=== PATIENT | female | born 1980 | race Caucasian/White ===

== ENCOUNTER 2017-05-17 13:03 | Emergency (ER) | payer MEDICARE, MEDICAID ==
[~2017-05-17] VITALS: Wt 84.8 kg
[~2017-05-17 13:03] MED LIST: CELEXA20 MG PO; CLINDAMYCIN150 MG PO; FIORICET 325 MG1 TAB PO; FLAGYL500 MG PO; FLEXERIL10 MG PO; FLEXERIL5 MG PO; FLONASE 0.05% 121 EA NAS; K-DUR 20MEQ20 MEQ PO; LOMOTIL 0.025 M1 TAB PO; LYSTEDA650 MG PO; MOTRIN800 MG PO; NKHM; PEN-VK500 MG PO; PENICILLIN VK500 MG PO; PERCOCET 325 MG1 TA5 PO; PHENERGAN W/ DE30 ML PO; PREDNICOT10 MG PO; PREDNICOT20 MG PO; ROBITUSSIN AC 110 ML PO; ULTRAM50 MG PO; VICODIN 5/500 505 MG PO; VOLTAREN50 M1 PO; XANAX0.5 MG PO; ZITHROMAX Z PA250 MG PO; Zofran4 MG PO
[2017-05-17 14:26] LABS: HEMATOCRIT 49.1 % (37.0-47.0); MEAN CELL VOLUME 84.5 fl (81.0-99.0); MEAN CORPUSCULAR HGB 29.3 pg (27.0-31.0); MEAN CORPUSCULAR HGB CONC 34.6 g/dl (33.0-37.0); MEAN PLATELET VOLUME 11.6 fl (9.6-12.3); PLATELET COUNT AUTOMATED 111 10*3/uL (130-400); RED BLOOD COUNT 5.81 10*6/uL (4.10-5.10); RED CELL DISTRI WIDTH 12.1 % (0-14.5); WHITE BLOOD COUNT 4.1 10*3/uL (4.8-10.8)
[2017-05-17 14:41] LABS: ALBUMIN 3.5 gm/dl (3.1-4.5); ALKALINE PHOSPHATASE 65 U/L (45-117); BUN 5 mg/dl (7-24); CHLORIDE 104 mmol/L (98-107); CREATININE 0.74 mg/dL (0.55-1.02); LIPASE 212 U/L (73-393); POTASSIUM 4.2 mmol/L (3.5-5.1); SGOT/AST 96 IU/L (3-35); SGPT/ALT 90 U/L (12-78); SODIUM 139 mmol/L (136-145); TOTAL PROTEIN 8.2 gm/dL (6.4-8.2)
[2017-05-17 14:42] LABS: BETA-HCG, QUANT < 1.0 mIU/mL (1-3)
[2017-05-17 14:55] LABS: ATYPICAL LYMPHS 4 % (0-0); TOTAL CELLS COUNTED 100 #CELLS
[2017-05-17 14:56] LABS: PLATELET SUFFICIENCY LOW (NORMAL)
[2017-05-17 16:21] LABS: BILIRUBIN 1+ (NEGATIVE); BLOOD NEGATIVE (NEGATIVE); CLARITY CLOUDY (CLEAR); COLOR YELLOW (YELLOW); GLUCOSE NEGATIVE (NEGATIVE); KETONE 1+ (NEGATIVE); LEUKO ESTERASE 3+ (NEGATIVE); NITRITE NEGATIVE (NEGATIVE)
[2017-05-17 16:28] LABS: BACTERIA 3+; EPITHELIAL CELLS 31-40; RBC 0-2 rbc/hpf (0-2)
[2017-05-17] MEDS ORDERED: ZOFRAN ODT4 MG SL (17:10)
== END 2017-05-17 17:18 | disposition home or self-care (01) ==
LOC: ED 13:03
PROVIDERS: Emergency Medicine
DX: B34.9 Viral infection, unspecified (principal); R10.84 Generalized abdominal pain; Z91.041 Radiographic dye allergy status; Z91.018 Allergy to other foods

== ENCOUNTER → 2018-04-01 | Outpatient (CLI) | payer MEDICARE, MEDICAID ==
[~2018-04-01] MED LIST changes: +ZOFRAN ODT4 MG SL
== END | disposition home or self-care (01) ==
LOC: RAD 10:16
DX: J18.9 Pneumonia, unspecified organism (principal); J40 Bronchitis, not specified as acute or chronic

== ENCOUNTER 2020-11-30 11:49 | Emergency (ER) | payer MEDICARE, MEDICAID ==
[~2020-11-30] VITALS: Ht 157.4 cm; Wt 68.0 kg
[2020-11-30] MEDS ORDERED: AUGMENTIN 875-875 MG PO (12:20)
== END 2020-11-30 12:35 | disposition home or self-care (01) ==
LOC: ED 11:49
DX: K04.7 Periapical abscess without sinus (principal); F17.200 Nicotine dependence, unspecified, uncomplicated; Z91.018 Allergy to other foods; Z91.041 Radiographic dye allergy status; Z79.899 Other long term (current) drug therapy

== ENCOUNTER 2022-06-07 08:13 | Emergency (ER) | payer MEDICARE, MEDICAID ==
[~2022-06-07 08:13] MED LIST changes: +AUGMENTIN 875-875 MG PO
[2022-06-07] MEDS ORDERED: AMOX-CLAV 875-1 EACH PO (09:41)
== END 2022-06-07 09:45 | disposition home or self-care (01) ==
LOC: ED 08:13
DX: K04.7 Periapical abscess without sinus (principal); Z91.018 Allergy to other foods; Z91.041 Radiographic dye allergy status; Z98.890 Other specified postprocedural states; J32.9 Chronic sinusitis, unspecified

== ENCOUNTER → 2023-01-29 | Outpatient (CLI) | payer MEDICARE, MEDICAID ==
[~2023-01-29] MED LIST changes: +AMOX-CLAV 875-1 EACH PO
== END | disposition home or self-care (01) ==
LOC: RAD 12:05
PROVIDERS: ATTEND Nurse Practitioner
DX: R09.89 Other specified symptoms and signs involving the circulatory and respiratory systems (principal)